=== PATIENT | male | born 1945 | race African-American/Black ===

== ENCOUNTER 2019-01-05 23:27 | Inpatient (IN) | payer MEDICARE, MEDICAID ==
[~2019-01-05] VITALS: Ht 190.5 cm; Wt 85.3 kg
[~2019-01-05 23:27] MED LIST: ASPI-1159 PO; DIPH25CA46 PO; FERR325T6 PO; FOLI-43 PO; FURO-151 PO; LOSA50TA20 PO; NIFE30TA94 PO; POTA10CA42 PO; TAMS0.4C31 PO
[2019-01-06 00:14] LABS: EOSINOPHILS % 3.5 % (0.0-5.0); HEMATOCRIT. 34.3 % (42.0-52.0); HEMOGLOBIN. 11.4 g/dL (14.0-18.0); LYMPHOCYTES % 32.7 % (20.0-50.0); MEAN CORPUSCULAR VOLUME 93.2 fL (80.0-94.0); MEAN PLATELET VOLUME 7.3 fl (7.4-10.4); MONOCYTES % 9.3 % (2.0-8.0); NEUTROPHILS % 53.5 % (40.0-76.0); PLATELET 208 x1000/uL (130-400); RED BLOOD CELL COUNT 3.68 mill/uL (4.7-6.1); RED CELL DISTRIBUTION WIDTH 14.3 % (11.6-14.6)
[2019-01-06 00:22] LABS: CHLORIDE 99 mEq/L (98-107)
[2019-01-06 00:25] LABS: ETHANOL BLOOD 98 mg/dL
[2019-01-06 01:04] LABS: PARTIAL THROMBOPLASTIN TIME 28.7 sec (23.4-31.0); PROTHROMBIN TIME 10.4 sec (9.1-11.1)
[2019-01-06] MEDS ORDERED: SODIUM CHLORIDE 0.9% 1,000 ML IV ONE ×3 (02:45→09:58)
[2019-01-06 03:03] LABS: *AMPHETAMINES SCREEN URINE NEGATIVE (NEGATIVE); *BARBITURATES SCREEN URINE NEGATIVE (NEGATIVE); *BENZODIAZEPINES SCREEN URINE NEGATIVE (NEGATIVE)
[2019-01-06 03:04] LABS: *COCAINE SCREEN URINE PRESUMTIVE POSITIVE (NEGATIVE); CANNABINOID URINE SCREEN NEGATIVE (NEGATIVE); METHADONE URINE SCREEN NEGATIVE (NEGATIVE); OPIATES URINE SCREEN NEGATIVE (NEGATIVE); PHENCYCLIDINE URINE SCREEN NEGATIVE (NEGATIVE)
[2019-01-06] MEDS ORDERED: ONDANSETRON HCL 4MG/2ML INJ IV ONE (04:15)
[2019-01-06] MEDS ORDERED: ONDANSETRON HCL 4MG/2ML INJ IV STA (08:57)
[2019-01-06 09:45] LABS: BASOPHILS % 0.9 % (0.0-2.0); EOSINOPHILS % 0.5 % (0.0-5.0); HEMATOCRIT. 34.9 % (42.0-52.0); HEMOGLOBIN. 11.7 g/dL (14.0-18.0); LYMPHOCYTES % 35.8 % (20.0-50.0); MEAN CORPUSCULAR HEMOGLOBIN 31.3 pg (28.0-32.0); MEAN CORPUSCULAR VOLUME 93.7 fL (80.0-94.0); MEAN PLATELET VOLUME 8.3 fl (7.4-10.4); MONOCYTES % 7.8 % (2.0-8.0); PLATELET 268 x1000/uL (130-400); RED BLOOD CELL COUNT 3.73 mill/uL (4.7-6.1); RED CELL DISTRIBUTION WIDTH 14.7 % (11.6-14.6)
[2019-01-06] MEDS ORDERED: PANTOPRAZOLE SODIUM 40 MG/VIAL IV STA (09:52)
[2019-01-06 09:54] LABS: ETHANOL BLOOD < 10 mg/dL
[2019-01-06 12:49] LABS: INR 1.1; PROTHROMBIN TIME 11.1 sec (9.1-11.1)
[2019-01-06 15:32] VITALS: BP 122/70
[2019-01-06 16:00] VITALS: BP 150/77
[2019-01-06] MEDS ORDERED: MAGNESIUM/ALUMINUM HYDROXIDE/SIMETHICONE 30ML UDC PO PRN (16:15)
[2019-01-06] MEDS ORDERED: IPRATROPIUM/ALBUTEROL 0.5-3(2.5)MG/3ML NEB INH PRN (16:15)
[2019-01-06] MEDS ORDERED: CLONIDINE 0.1MG TABLET PO PRN (16:15)
[2019-01-06] MEDS ORDERED: ONDANSETRON HCL 4MG/2ML INJ IV PRN (16:15)
[2019-01-06 18:00] VITALS: BP 157/69
[2019-01-06] MEDS ORDERED: MVI, ADULT NO.1 10 ML, FOLIC ACID 1 MG, THIAMINE HCL 100 MG in SODIUM CHLORIDE 0.9% 1,0... IV NR ×4 (18:00)
[2019-01-06] MEDS: ACETAMINOPHEN 325MG TABLET PO PRN (18:58)
[2019-01-06] MEDS: LORAZEPAM 0.5MG TABLET PO PRN (18:59)
[2019-01-06 20:00] VITALS: BP 118/65
[2019-01-06] MEDS: SODIUM CHLORIDE 0.9% 1,000 ML IV SCH (20:33)
[2019-01-06] MEDS ORDERED: TEMAZEPAM 15MG CAPSULE PO PRN (21:00)
[2019-01-06 22:00] VITALS: BP 139/70
[2019-01-06] MEDS: FAMOTIDINE 20MG/2ML VIAL IV SCH (22:07)
[2019-01-07] VITALS (12 sets, daily range): BP systolic 120–159; BP diastolic 58–88
[2019-01-07] MEDS: ACETAMINOPHEN 325MG TABLET PO PRN ×3 (00:57→20:04)
[2019-01-07] MEDS: LORAZEPAM 0.5MG TABLET PO PRN ×3 (01:52→20:03)
[2019-01-07 06:09] LABS: BASOPHILS % 0.6 % (0.0-2.0); EOSINOPHILS % 0.4 % (0.0-5.0); HEMATOCRIT. 25.6 % (42.0-52.0); HEMOGLOBIN. 8.6 g/dL (14.0-18.0); LYMPHOCYTES % 13.3 % (20.0-50.0); MEAN CORPUSCULAR HEMOGLOBIN 31.2 pg (28.0-32.0); MEAN CORPUSCULAR VOLUME 92.8 fL (80.0-94.0); MEAN PLATELET VOLUME 8.9 fl (7.4-10.4); MONOCYTES % 3.9 % (2.0-8.0); NEUTROPHILS % 81.8 % (40.0-76.0); PLATELET 169 x1000/uL (130-400); RED BLOOD CELL COUNT 2.76 mill/uL (4.7-6.1); RED CELL DISTRIBUTION WIDTH 14.6 % (11.6-14.6)
[2019-01-07 06:23] LABS: CHLORIDE 111 mEq/L (98-107)
[2019-01-07 06:36] LABS: PHOSPHORUS 1.5 mg/dL (2.5-4.9)
[2019-01-07] MEDS: FAMOTIDINE 20MG/2ML VIAL IV SCH ×2 (08:10→20:03)
[2019-01-07] MEDS: LOSARTAN POTASSIUM 50 MG TABLET PO SCH (08:10)
[2019-01-07] MEDS: TAMSULOSIN HCL 0.4MG SR CAPSULE PO SCH (14:00)
[2019-01-07] MEDS: SODIUM CHLORIDE 0.9% 1,000 ML IV SCH (17:54)
[2019-01-07] MEDS: GUAIFENESIN 200MG/10ML SUGAR FREE UDC PO PRN (22:20)
[2019-01-07] MEDS: DIPHENHYDRAMINE 50MG/ML VIAL IV PRN (22:20)
[2019-01-08] VITALS (12 sets, daily range): BP systolic 125–162; BP diastolic 50–82
[2019-01-08] MEDS: ACETAMINOPHEN 325MG TABLET PO PRN (02:33)
[2019-01-08] MEDS: LORAZEPAM 0.5MG TABLET PO PRN (02:33)
[2019-01-08 07:50] LABS: BASOPHILS % 0.9 % (0.0-2.0); EOSINOPHILS % 4.2 % (0.0-5.0); HEMATOCRIT. 22.9 % (42.0-52.0); LYMPHOCYTES % 17.3 % (20.0-50.0); MEAN CORPUSCULAR VOLUME 94.2 fL (80.0-94.0); MEAN PLATELET VOLUME 8.5 fl (7.4-10.4); NEUTROPHILS % 72.6 % (40.0-76.0); PLATELET 145 x1000/uL (130-400); RED BLOOD CELL COUNT 2.43 mill/uL (4.7-6.1); RED CELL DISTRIBUTION WIDTH 14.6 % (11.6-14.6)
[2019-01-08 08:00] LABS: CHLORIDE 111 mEq/L (98-107)
[2019-01-08] MEDS: SODIUM CHLORIDE 0.9% 1,000 ML IV SCH ×2 (08:11→13:02)
[2019-01-08] MEDS: TAMSULOSIN HCL 0.4MG SR CAPSULE PO SCH (09:30)
[2019-01-08] MEDS: LOSARTAN POTASSIUM 50 MG TABLET PO SCH (09:30)
[2019-01-08] MEDS: FAMOTIDINE 20MG/2ML VIAL IV SCH (09:30)
[2019-01-08] MEDS: GUAIFENESIN 200MG/10ML SUGAR FREE UDC PO PRN (09:32)
[2019-01-08] MEDS: PANTOPRAZOLE SODIUM 40 MG/VIAL IV SCH ×2 (13:01→21:37)
[2019-01-08] MEDS: IRON SUCROSE COMPLEX 100 MG/5 ML ML IV SCH (13:57)
[2019-01-08] MEDS: DIPHENHYDRAMINE 50MG/ML VIAL IV PRN (21:40)
[2019-01-09] VITALS (19 sets, daily range): BP systolic 86–156; BP diastolic 18–94
[2019-01-09] MEDS: LOSARTAN POTASSIUM 50 MG TABLET PO SCH (08:35)
[2019-01-09] MEDS: TAMSULOSIN HCL 0.4MG SR CAPSULE PO SCH ×2 (08:35→15:26)
[2019-01-09] MEDS: IRON SUCROSE COMPLEX 100 MG/5 ML ML IV SCH (08:35)
[2019-01-09] MEDS: PANTOPRAZOLE SODIUM 40 MG/VIAL IV SCH ×2 (08:35→21:25)
[2019-01-09 08:47] LABS: HEMATOCRIT 24.9 % (42.0-52.0); HEMOGLOBIN 8.4 g/dL (14.0-18.0); MEAN CORPUSCULAR HEMOGLOBIN 31.4 pg (28.0-32.0); MEAN CORPUSCULAR VOLUME 92.8 fL (80.0-94.0); PLATELET 147 x1000/uL (130-400); RED BLOOD CELL COUNT 2.68 mill/uL (4.7-6.1); RED CELL DISTRIBUTION WIDTH 15.2 % (11.6-14.6)
[2019-01-09] MEDS ORDERED: MIDAZOLAM HCL 5 MG/5 ML VIAL IV PRN (13:51)
[2019-01-09] MEDS ORDERED: FENTANYL CITRATE/PF 50MCG/ML 2ML VIAL IV PRN (13:52)
[2019-01-09] MEDS ORDERED: MIDAZOLAM HCL 5 MG/5 ML VIAL ONE (13:57)
[2019-01-09] MEDS ORDERED: FENTANYL CITRATE/PF 50MCG/ML 2ML VIAL ONE (13:58)
[2019-01-09] MEDS ORDERED: HYDRALAZINE 20MG/ML VIAL IV ONE (14:02)
[2019-01-09] MEDS ORDERED: HYDRALAZINE 20MG/ML VIAL ONE (14:08)
[2019-01-09] MEDS ORDERED: BACTERIOSTATIC SODIUM CHLORIDE 0.9% 30ML VIAL IJ ONE (15:40)
[2019-01-09] MEDS ORDERED: SIMETHICONE 40 MG/0.6 ML 30ML ONE (15:40)
[2019-01-09] MEDS: LORAZEPAM 0.5MG TABLET PO PRN (20:08)
[2019-01-09] MEDS: ACETAMINOPHEN 325MG TABLET PO PRN (20:09)
[2019-01-09] MEDS: DIPHENHYDRAMINE 50MG/ML VIAL IV PRN (21:25)
[2019-01-10] VITALS (9 sets, daily range): BP systolic 128–161; BP diastolic 62–89
[2019-01-10] MEDS: LORAZEPAM 0.5MG TABLET PO PRN (00:31)
[2019-01-10] MEDS: ACETAMINOPHEN 325MG TABLET PO PRN (00:31)
[2019-01-10] MEDS: SODIUM CHLORIDE 0.9% 1,000 ML IV SCH ×2 (04:51→06:35)
[2019-01-10 06:50] LABS: HEMATOCRIT 22.1 % (42.0-52.0); HEMOGLOBIN 7.4 g/dL (14.0-18.0); MEAN CORPUSCULAR HEMOGLOBIN 30.8 pg (28.0-32.0); MEAN CORPUSCULAR VOLUME 92.5 fL (80.0-94.0); PLATELET 170 x1000/uL (130-400); RED BLOOD CELL COUNT 2.39 mill/uL (4.7-6.1); RED CELL DISTRIBUTION WIDTH 15.4 % (11.6-14.6)
[2019-01-10] MEDS: PANTOPRAZOLE SODIUM 40 MG/VIAL IV SCH (09:21)
[2019-01-10] MEDS: TAMSULOSIN HCL 0.4MG SR CAPSULE PO SCH (09:22)
[2019-01-10] MEDS: LOSARTAN POTASSIUM 50 MG TABLET PO SCH (09:22)
== END 2019-01-10 15:20 | disposition home or self-care (01) | DRG 73 ==
LOC: ER 23:35 → EDBEDREQ 01-06 08:57 → EDBEDREQSVC 01-06 09:34 → 5EST 01-06 09:53 → EDBEDREQ 01-06 09:55 → ENRESERV 01-06 13:16
PROVIDERS: ADMIT Internal Medicine; ATTEND Internal Medicine
PROC: 30233N1 Transfusion of Nonautologous Red Blood Cells into Peripheral Vein, Percutaneous Approach (ICD-10-PCS; principal; 2019-01-09)
PROC: 0DB68ZX Excision of Stomach, Via Natural or Artificial Opening Endoscopic, Diagnostic (ICD-10-PCS; 2019-01-09)
DX: G90.8 Other disorders of autonomic nervous system (principal); K29.71 Gastritis, unspecified, with bleeding; R04.0 Epistaxis; I10 Essential (primary) hypertension; K44.9 Diaphragmatic hernia without obstruction or gangrene; F14.10 Cocaine abuse, uncomplicated; E86.0 Dehydration; F10.229 Alcohol dependence with intoxication, unspecified; F17.210 Nicotine dependence, cigarettes, uncomplicated; K21.9 Gastro-esophageal reflux disease without esophagitis; Z59.0 Homelessness; M19.90 Unspecified osteoarthritis, unspecified site; Z79.82 Long term (current) use of aspirin; Z85.46 Personal history of malignant neoplasm of prostate; Z92.3 Personal history of irradiation
CPT/HCPCS: 36415; 71045; 80048; 80305; 80320; 83735; 84100; 84484; 85027; 86850; 86900; 86920; 87493; 88305; 88313; 93970; 96361; 96374; 97162; 99285; C9113; J0360; J1200; J2250; J2405; J3010; J3411; J3490; J7030; P9016; G0480

== ENCOUNTER 2019-08-24 17:48 | Inpatient (IN) | payer MEDICARE, MEDICAID ==
[~2019-08-24] VITALS: Ht 188 cm; Wt 95.3 kg
[~2019-08-24 17:48] MED LIST changes: -ASPI-1159 PO; +ASPI-1393 PO; -LOSA50TA20 PO; +LOSA50TA41 PO
[2019-08-24] MEDS ORDERED: SODIUM CHLORIDE 0.9% 1,000 ML IV ONE (18:37)
[2019-08-24] MEDS ORDERED: ONDANSETRON HCL 4MG/2ML INJ IV STA (18:37)
[2019-08-24 19:58] LABS: BASOPHILS % 0.5 % (0.0-2.0); EOSINOPHILS % 0.2 % (0.0-5.0); HEMATOCRIT. 36.8 % (42.0-52.0); HEMOGLOBIN. 12.3 g/dL (14.0-18.0); LYMPHOCYTES % 7.9 % (20.0-50.0); MEAN CORPUSCULAR HEMOGLOBIN 31.7 pg (28.0-32.0); MEAN PLATELET VOLUME 7.4 fl (7.4-10.4); MONOCYTES % 8.9 % (2.0-8.0); NEUTROPHILS % 82.5 % (40.0-76.0); PLATELET 183 x1000/uL (130-400); RED BLOOD CELL COUNT 3.88 mill/uL (4.7-6.1)
[2019-08-24 19:59] LABS: CHLORIDE 98 mEq/L (98-107)
[2019-08-24 20:04] LABS: ETHANOL BLOOD 116 mg/dL
[2019-08-24 21:14] LABS: CLARITY URINE CLEAR (CLEAR); COLOR URINE YELLOW (YELLOW); KETONES URINE NEGATIVE (NEGATIVE); LEUKOCYTE ESTERASE URINE NEGATIVE (NEGATIVE); NITRITE URINE NEGATIVE (NEGATIVE); OCCULT BLOOD URINE NEGATIVE (NEGATIVE); PROTEIN URINE NEGATIVE (NEGATIVE); SPECIFIC GRAVITY URINE 1.007 (1.005-1.030); UROBILINOGEN URINE 0.2 E.U./dL (0.2-1.0)
[2019-08-24 21:58] LABS: METHADONE URINE SCREEN NEGATIVE (NEGATIVE)
[2019-08-24 22:00] LABS: *AMPHETAMINES SCREEN URINE NEGATIVE (NEGATIVE); *BARBITURATES SCREEN URINE NEGATIVE (NEGATIVE); CANNABINOID URINE SCREEN NEGATIVE (NEGATIVE); OPIATES URINE SCREEN NEGATIVE (NEGATIVE); PHENCYCLIDINE URINE SCREEN NEGATIVE (NEGATIVE)
[2019-08-24 22:01] LABS: *BENZODIAZEPINES SCREEN URINE NEGATIVE (NEGATIVE); *COCAINE SCREEN URINE NEGATIVE (NEGATIVE)
[2019-08-24] MEDS ORDERED: ONDANSETRON HCL 4MG/2ML INJ IV PRN (22:30)
[2019-08-24] MEDS ORDERED: CLONIDINE 0.1MG TABLET PO PRN (22:30)
[2019-08-24] MEDS ORDERED: GUAIFENESIN 200MG/10ML SUGAR FREE UDC PO PRN (22:30)
[2019-08-24] MEDS ORDERED: LORAZEPAM 2MG/ML CPJ IV PRN (22:30)
[2019-08-24] MEDS ORDERED: ACETAMINOPHEN 325MG TABLET PO PRN (22:30)
[2019-08-24] MEDS ORDERED: DOCUSATE SODIUM 100MG CAPSULE PO PRN (22:30)
[2019-08-25] VITALS: BP 151/71
[2019-08-25] MEDS: HYDROCODONE/ACETAMINOPHEN 5/325MG TABLET PO PRN ×2 (01:45→09:25)
[2019-08-25 04:00] VITALS: BP 138/87
[2019-08-25 08:00] VITALS: BP 112/70
[2019-08-25] MEDS ORDERED: AMLODIPINE 10MG TABLET PO SCH (09:00)
[2019-08-25] MEDS ORDERED: THIAMINE HCL 100MG TABLET PO SCH (09:00)
[2019-08-25] MEDS ORDERED: MULTIVITAMINS,THER W-MINERALS TABLET PO SCH (09:00)
[2019-08-25 12:00] VITALS: BP 103/64
[2019-08-25 15:07] VITALS: BP 103/64
== END 2019-08-25 15:30 | disposition home or self-care (01) | DRG 640 ==
LOC: ER 21:04 → 7WST 21:10 → EDBEDREQ 21:14 → EDBEDREQTM 21:14 → ENRESERV 22:38
PROVIDERS: ADMIT Hospitalist; ATTEND Hospitalist
DX: E87.1 Hypo-osmolality and hyponatremia (principal); G92 Toxic encephalopathy; F14.10 Cocaine abuse, uncomplicated; F10.10 Alcohol abuse, uncomplicated; I10 Essential (primary) hypertension; Z79.82 Long term (current) use of aspirin
CPT/HCPCS: 36415; 71045; 80305; 80320; 81003; 83880; 84484; 93005; 93306; 93970; 99285; J2405; J7030; G0480